=== PATIENT | female | born 1955 | race Hispanic/Latino ===

== ENCOUNTER 2018-11-05 15:35 | Emergency (ER) | payer MEDICAID ==
[2018-11-05 15:47] VITALS: BMI 48.4
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
[2018-11-05 16:40] LABS: BASO # 0.01 K/mm3 (0.0-2.0); BASO % 0.1 % (0.0-3.0); EOS # 0.1 (0.0-0.7); EOS % 1.7 % (1.5-5.0); GRAN # 4.84 (1.4-6.5); GRAN % 70.5 % (50.0-68.0); HEMOGLOBIN 13.4 g/dL (12.0-16.0); LYMPH # 1.6 (1.2-3.4); LYMPH % 22.8 % (22.0-35.0); MEAN CELL VOLUME 98.8 fl (80.0-105.0); MEAN CORPUSCULAR HEMOGLOBIN 31.5 pg (25.0-35.0); MEAN CORPUSCULAR HGB CONC 31.8 g/dl (31.0-37.0); MEAN PLATELET VOLUME 10.1 fl (7.0-11.0); MONO # 0.3 (0.1-0.6); MONO % 4.9 % (1.0-6.0); RBC 4.26 10^6/uL (3.5-6.1); RED CELL DISTRIBUTION WIDTH 15.4 % (11.5-14.5); WHITE BLOOD COUNT 6.9 10^3/uL (4.5-11.0)
[2018-11-05 16:53] LABS: ALB/GLOB RATIO 1.5 (1.1-1.8); ALBUMIN 4.1 g/dL (3.0-4.8); ALT/SGPT 28 U/L (7-56); AST/SGOT 17 U/L (14-36); BLOOD UREA NITROGEN 25 mg/dL (7-21); CALCIUM 9.1 mg/dL (8.4-10.5); GFR NON-AFRICAN AMERICAN > 60
[2018-11-05 17:09] LABS: FREE T4 1.05 ng/dL (0.78-2.19)
--- NOTE | 2018-11-05 17:25 | RAD ---
Date of service: 11/05/2018 HISTORY: psych clearance COMPARISON: No prior. FINDINGS: LUNGS: No active pulmonary disease. PLEURA: No significant pleural effusion identified, no pneumothorax apparent. CARDIOVASCULAR: No atherosclerotic calcification present Normal. OSSEOUS STRUCTURES: No significant abnormalities. VISUALIZED UPPER ABDOMEN: Normal. OTHER FINDINGS: None. IMPRESSION: No active disease.
[2018-11-05 18:12] LABS: PH,URINE 6.5 (4.7-8.0); URINE BILIRUBIN NEGATIVE (NEGATIVE); URINE BLOOD TRACE-LYSED (NEGATIVE); URINE GLUCOSE (UA) NEGATIVE (NEGATIVE); URINE LEUKOCYTE ESTERASE SMALL Leu/uL (NEGATIVE); URINE PROTEIN TRACE mg/dL (<30 mg/dL); URINE UROBILINOGEN 0.2 E.U./dL (<1 E.U./dL)
[2018-11-05 18:13] LABS: URINE APPEARANCE SLIGHT-CLOUDY (CLEAR); URINE COLOR YELLOW (YELLOW)
[2018-11-05 18:17] LABS: URINE BACTERIA FEW (NEG); URINE EPITHELIAL CELLS 0 - 2 /hpf (0-5); URINE WBC 0 - 2 /hpf (0-6)
[2018-11-05 18:58] LABS: BARBITURATES, UR NEGATIVE (NEGATIVE); BENZODIAZEPINES, UR NEGATIVE (NEGATIVE); OPIATES, UR POSITIVE (NEGATIVE); PHENCYCLIDINE, UR NEGATIVE (NEGATIVE)
--- NOTE | 2018-11-06 02:07 | ED PDOC ---
Physical Exam Vital Signs Temp Pulse Resp BP Pulse Ox 11/05/18 22:06 98.1 F 75 20 144/70 95 11/05/18 19:32 76 18 141/63 96 11/05/18 18:02 98.4 F 74 18 125/84 98 11/05/18 15:45 98.2 F 87 18 129/77 96 Medical Decision Making ED Course and Treatment: 11/05/18 19:00 Case endorsed to me by Dr. Reyes pending reassessment and disposition. 11/06/18 02:08 Patient's abdominal pain has resolved. Patient is medical cleared. Patient is currently sleeping and in no acute distress. 11/06/18 03:54 Patient seen and evaluated patient. States patient will be transferred to [facility] for psych admission. - Lab Interpretations Lab Results: 11/05/18 16:30 11/05/18 16:30 Lab Results 11/05/18 17:20: Urine Color Yellow, Urine Appearance Slight-cloudy, Urine pH 6.5, Ur Specific Malin 1.020, Urine Protein Trace H, Urine Glucose (UA) Negative, Urine Ketones Negative, Urine Blood Trace-lysed H, Urine Nitrate Negative, Urine Bilirubin Negative, Urine Urobilinogen 0.2, Ur Leukocyte Esterase Small H, Urine RBC 1 - 3, Urine WBC 0 - 2, Ur Epithelial Cells 0 - 2, Urine Bacteria Few 11/05/18 17:20: Urine Opiates Screen Positive H, Urine Methadone Screen Negative, Ur Barbiturates Screen Negative, Ur Phencyclidine Scrn Negative, Ur Amphetamines Screen Negative, U Benzodiazepines Scrn Negative, U Oth Cocaine Metabols Negative, U Cannabinoids Screen Negative 11/05/18 16:30: Free T4 1.05, TSH 3rd Generation 2.43 11/05/18 16:30: Sodium 142, Potassium 4.3, Chloride 109 H, Carbon Dioxide 27, Anion Gap 10, BUN 25 H, Creatinine 0.9, Est GFR ( Amer) > 60, Est GFR (Non-Af Amer) > 60, Random Glucose 99, Calcium 9.1, Magnesium 2.2, Total Bilirubin 0.4, AST 17, ALT 28, Alkaline Phosphatase 67, Total Protein 6.7, Alb umin 4.1, Globulin 2.7, Albumin/Globulin Ratio 1.5 11/05/18 16:30: Salicylates < 1 L 11/05/18 16:30: WBC 6.9, RBC 4.26, Hgb 13.4, Hct 42.1, MCV 98.8, MCH 31.5, MCHC 31.8, RDW 15.4 H, Plt Count 182, MPV 10.1, Gran % 70.5 H, Lymph % (Auto) 22.8, Cherry % (Auto) 4.9, Eos % (Auto) 1.7, Baso % (Auto) 0.1, Gran # 4.84, Lymph # (Auto) 1.6, Cherry # (Auto) 0.3, Eos # (Auto) 0.1, Baso # (Auto) 0.01 - RAD Interpretation Radiology Orders: 11/05/18 16:18 CHEST PORTABLE [RAD] Stat - Medication Orders Current Medication Orders: Discontinued Medications Lorazepam (Ativan) 0.5 mg PO ONCE STA; Protocol Stop: 11/05/18 21:33 Last Admin: 11/05/18 22:18 Dose: 0.5 mg - Scribe Statement The provider has reviewed the documentation as recorded by the Miguel A Calix Provider Scribe Attestation: All medical record entries made by the Miguel A were at my direction and personally dictated by me. I have reviewed the chart and agree that the record accurately reflects my personal performance of the history, physical exam, medical decision making, and the department course for this patient. I have also personally directed, reviewed, and agree with the discharge instructions and disposition. Disposition/Present on Arrival - Present on Arrival Any Indicators Present on Arrival: No History of DVT/PE: No History of Uncontrolled Diabetes: No Urinary Catheter: No History of Decub. Ulcer: No History Surgical Site Infection Following: None - Disposition Have Diagnosis and Disposition been Completed?: Yes Diagnosis: Major depressive disorder Disposition: Transfer [facility] Disposition Time: 04:00 Condition: STABLE Forms: [employer] (Kyrgyz)
[2018-11-06 03:45] VITALS: RESP 18
[2018-11-06 04:23] VITALS: BP 128/77; PULSE 80; TEMP 98.3; O2SAT 95
--- NOTE | 2018-11-06 09:57 | CARD ---
APPROVED REPORT Date of service: 11/05/2018 EKG Measurement Heart [id number] <Conclusion> Normal sinus rhythm Normal ECG
== END 2018-11-06 04:22 | disposition short-term general hospital (02) ==
LOC: ED 15:35
DX: F32.9 Major depressive disorder, single episode, unspecified (principal); E11.9 Type 2 diabetes mellitus without complications